=== PATIENT | female | born 1990 | race Caucasian/White ===

== ENCOUNTER 2021-01-26 10:00 | Inpatient (IN) | payer OTHER, SELFPAY ==
[2021-01-26] VITALS (20 sets, daily range): BP systolic 100–129; BP diastolic 43–78; PULSE 61–85; RESP 16–20; TEMP 35.7–36.9; O2SAT 96–100; BMI 31.1
[2021-01-26] MEDS: Lactated Ringers 1,000 ML 999 ML IV (11:00)
--- NOTE | 2021-01-26 11:12 | PCM.HP.OB ---
HPI - General General Date of Admission: 01/26/21 HPI Narrative MIKAYLA CARLISLE, is a 30 F at 40/3 who presents for repeat Maternal Data Information ELIANA Calculator Estimated Delivery Date Method Current WG Current Estimate 01/23/21 Manual 40w 3d PFSH PFSH Home Medications borage (borago officinalis) [Borage Oil] 2,000 mg PO DAILY 01/26/21 [History Last Taken 01/25/21] tatum mutx-dtlavtlk-oyxaemhrh ac [[place] Oil] 1 cap PO TID 01/26/21 [History Last Taken 01/25/21] grijpdlk-cuk-Um-FA [] 1 tab PO DAILY 01/26/21 [History Last Taken 01/25/21] Allergy/AdvReac Type Severity Reaction Status Date / Time No Known Allergies Allergy Unverified 01/26/21 09:04 Surgical History (Updated 01/26/21 @ 09:08 by Elly Kim) H/O section History of wisdom tooth extraction, class IV edentulism Social History (Updated 01/26/21 @ 09:10 by Elly Kim) household members: family housing: house number of children: 2 Smoking Status: Never smoker second hand exposure: No alcohol intake: current alcohol intake frequency: holidays/special occasions only details: not while substance use type: does not use seatbelt use: always do you feel safe at home: Yes additional social history: - [place] History 3 Elective abortions Hx Para 2 Spontaneous abortions Hx # Term Pregnancies Ectopic pregnancies Hx # Pregnancies Multiple births # of living children 2 Past Pregnancies Del. Date Name GA/Weeks Outcome Route Bth Weight Infant Gen Labor Lgth Anesthesia Del Locatn Provider FOB 10/07/18 Mainor 40 live - full term 7lbs 9oz Male couple of hours epidural [facility] Dr. Jax Stevenson 11/06/19 Elly 40 live - full term 7lbs 9oz Female 0 spinal [facility] Graham Delivery Date: 10/07/18 Failure to progress Elly Kim Delivery Date: 11/06/19 scheduled C/S no complications Elly Kim Visit Details Expected Delivery Route/Plan RCD ROS Eyes Eyes: Reports systems reviewed and no addt'l complaints, except as documented ENT HEENT: Reports systems reviewed and no addt'l complaints, except as documented Cardiovascular Cardiovascular: Reports systems reviewed and no addt'l complaints, except as documented Respiratory/Chest Respiratory/Chest: Reports systems reviewed and no addt'l complaints, except as documented Gastrointestinal Gastrointestinal: Reports systems reviewed and no addt'l complaints, except as documented Genitourinary Genitourinary: Reports systems reviewed and no addt'l complaints, except as documented Musculoskeletal Musculoskeletal: Reports systems reviewed and no addt'l complaints, except as documented Integumentary Integumentary: Reports systems reviewed and no addt'l complaints, except as documented Neurologic Neurologic: Reports systems reviewed and no addt'l complaints, except as documented Psychiatric Psychiatric: Reports systems reviewed and no addt'l complaints, except as documented Endocrine Endocrinology: Reports systems reviewed and no addt'l complaints, except as documented Hematologic/Lymphatic Hematologic/Lymphatic: Reports systems reviewed and no addt'l complaints, except as documented Allergic/Immunologic Allergic/Immunologic: Reports systems reviewed and no addt'l complaints, except as documented Vital Signs Vital Signs Vital Signs: Weight Weight: 176 lb Body Mass Index (BMI) 31.1 Physical Exam Const alert, oriented x3, no apparent distress, average body habitus, healthy appearing and well nourished HEENT normocephalic and moist oral mucous membranes Head and Scalp: atraumatic Eyes PERRL and EOMs intact bilaterally Neck full ROM Resp normal respiratory effort, no retractions and no use of accessory muscles Cardio regular rate and regular rhythm GI soft to palpation, non-tender and non-distended Extremity normal to inspection and full ROM Skin no rashes or lesions noted Neuro no focal motor deficits and no sensory deficits noted Psych mental status grossly normal, affect normal, speech normal and activity/motor behavior normal Labs Labs Labs: No Data to Display Assessment & Plan (1) Limited care in third trimester: COMMENT: Received care with mirror fabrication supervisor. NOB labs ordered on admission. (2) H/O section: COMMENT: 2018 and 2019 PLAN: Hx x2 Plan repeat Ancef 2g ordered Plan spinal anesthesia
[2021-01-26] MEDS: Acetaminophen 500 MG Tablet 1000 MG PO ×3 (11:27→23:34)
[2021-01-26] MEDS: Sodium Citrate/Citric Acid 30 ML UDC PO (11:29)
[2021-01-26 11:31] LABS: Absolute Lymphocyte Count 2.05 X10^3/uL (0.83-4.51); Absolute Neutrophil Count 7.6 X10^3/uL (2.0-7.7); Basophil# 0.03 X10^3/uL; Basophil% 0.3 % (0-1); Eosinophil# 0.03 X10^3/uL; Eosinophils% 0.3 % (0-5); Hematocrit 35.4 % (37-47); Hemoglobin 11.2 g/dL (12.0-15.0); Lymphocyte # 2.05 X10^3/ul (0.83-4.51); Lymphocyte % 19.8 % (19-41); Mean Corp Hgb Conc 31.6 g/dL (32-36); Mean Corpuscular Hgb 27.9 pg (27.0-32.0); Mean Corpuscular Volume 88.3 fL (81-99); Mean Platelet Vol. 8.6 fl (6.2-12.0); Monocyte# 0.61 X10^3/uL; Monocyte% 5.9 % (0-10); NRBC Flagged by Analyzer 0 % (0-5); Neutrophil # 7.58 X10^3/uL (2.7-7.7); Neutrophil % 73.2 % (47-70); Platelet Count 382 K/mm3 (150-450); RBC Distribution Width CV 13.7 % (11.6-14.6); RBC Distribution Width SD 44.1 fl (35.1-43.9); Red Blood Count 4.01 M/mm3 (4.2-5.4); White Blood Count 10.4 K/mm3 (4.4-11.0)
[2021-01-26 11:36] LABS: Mucous, Urine 0 SEEN /hpf (<or=2+); Red Blood Cells-Urine 0 SEEN /hpf (0-5); White Blood Cells 0 SEEN /hpf (0-5)
[2021-01-26 11:38] LABS: Color, Urine Yellow (Yellow); Glucose, Dipstick Normal (Normal); Ketone-Dipstick 50 mg/dl (Negative); Leukocyte Esterase-Dipstick Negative /ul (Negative); Nitrite-Dipstick Negative (Negative); Occult Blood-Urine Negative /ul (Negative); Protein-Dipstick Negative (Negative); Urine Bilirubin Dipstick Negative (Negative); Urine Clarity Sl. Cloudy (Clear); Urine Urobilinogen Normal (Normal)
[2021-01-26 11:44] LABS: Bacteria 1+ /hpf (None Seen); Squamous Epithelial Cells - UA 0-5 SEEN /hpf (5-10)
[2021-01-26 12:03] LABS: Amphetamine Urine VISTA NEGATIVE (<1000 ng/mL); Barbiturate Urine VISTA NEGATIVE (< 200 ng/mL); Benzodiazepine Urine VISTA NEGATIVE (< 200 ng/mL); Cocaine Urine VISTA NEGATIVE (< 300 ng/mL); Ecstacy Urine VISTA NEGATIVE (< 500 ng/mL); Methadone Urine VISTA NEGATIVE (< 300 ng/mL); PCP Urine VISTA NEGATIVE (< 25 ng/mL); THC Urine VISTA NEGATIVE (< 50 ng/mL); Vista UDS pH Range 6
[2021-01-26] MEDS: Lactated Ringers 1,000 ML 150 ML IV (12:05)
[2021-01-26] MEDS: Cefazolin 2 GM in 0.9% Normal Saline 100 ML IV (12:05)
[2021-01-26 12:10] LABS: Rubella IgG Reactive (Nonreactive); Syphilis Antibodies Non-reactive
[2021-01-26 12:29] LABS: HIV - WCH Non-Reactive (Nonreactive); Hepatitis B Surface Antigen Non-Reactive (Nonreactive); Hepatitis C Antibody Non-Reactive (Nonreactive)
--- NOTE | 2021-01-26 13:07 | OP.PCM_ITS ---
Assessment & Plan (1) delivery delivered: (2) Limited care in third trimester: COMMENT: Received care with accident report clerk. NOB labs ordered on admission. (3) H/O section: COMMENT: 2018 and 2019 Maternal Data Information ELIANA Calculator Estimated Delivery Date Method Current WG Current Estimate 01/23/21 Manual 40w 3d Details Operative Information Date of Procedure: 01/26/21 Pre-Operative Diagnosis: Term , postdates, history of x2 Post-Operative Diagnosis: Same Indications for : Repeat Elective Indications Narrative: 30-year-old G3, P2 at 40 weeks gestation admitted for repeat . Classification: Scheduled Procedure Type: low transverse premium card cancellation clerk #1: Kimberly Alvares Type of Anesthesia: Spinal Antibiotic Given: Ancef 2 grams IV x1 Drain: Padron to straight drain Estimated Blood Loss: 400 Findings Description of Procedure: The patient is a 30-year-old G3, P2 who presented for repeat . Spinal anesthesia was placed without difficulty. Padron catheter was placed. The patient was placed in the dorsal supine position with leftward tilt. Patient was prepped and draped in the normal sterile fashion. Pfannenstiel skin incision was made with the scalpel and carried through to the underlying layer of fascia with the scalpel. Fascia was nicked in the midline and the incision extended laterally. The rectus bellies were dissected off superiorly and inferiorly with out complication both sharply and bluntly. The peritoneum was entered digitally. The incision was stretched and a low transverse uterine incision was made with the scalpel. The 's head was delivered atraumatically followed by the anterior and posterior shoulders without complication the rest of the delivered. The cord was clamped and cut and the infant was handed off to awaiting nurse. The placenta was delivered spontaneously immediately following and was noted to be intact and have a three- vessel cord. The uterus was exteriorized cleared of all clots and debris, and the incision was closed in a double layer closure using #1 Monocryl. The ovaries and fallopian tubes were noted to be within normal limits. The uterus was returned to the maternal abdomen and gutters were cleared of all clots and debris. The peritoneum was closed with 3-0 Monocryl in a running fashion. Gloves were changed prior to fascial closure. Fascia was closed with 0 PDS in a running fashion. Subcutaneous tissue was copiously irrigated and the skin was closed with 3-0 Monocryl in a subcuticular fashion. Mepilex dressing was applied without complication. Patient was taken to recovery in stable condition. Presentation: Positive for Vertex Amniotic Membrane Rupture Type: Spontaneous Amniotic Fluid Description: Lightly stained meconium Placental Delivery Description: Manual Removal Placenta Disposition: [facility] Cord Vessel Description: 3 Vessels Cord Entanglement: None Delayed Cord Clamping: Yes Complications Risks of Surgery Discussed w/Patient: Bleeding, Anesthesia Risks, Infection, Need for Future C-Sections and Injury to surrounding structure(s) including bowel and bladder Procedures Urinary/Genital [id number]: [id number] Delivery [facility]
[2021-01-26 13:26] LABS: Chlamydia Trachomatis by PCR Negative (Negative); Neisserai gonorrhoeae by PCR Negative (Negative); Probe Check PASS; Sample Adequacy Control PASS; Specimen Processing Control PASS
[2021-01-26] MEDS: Oxytocin 30 units/NS 500 ml 30 UNITS/500 ML IV.SOLN 167 UNITS IV (13:30)
[2021-01-26] MEDS: Ketorolac 30 MG/ML Syringe IV (13:57)
--- NOTE | 2021-01-26 14:03 | DCINST_ITS ---
Discharge Instructions Diet Discharge Diet: No restrictions Activity May resume sexual activity in: 4-6 weeks Lifting Restrictions: 20 lbs Additional Activity Instructions:: Nothing in the vagina for 4-6 weeks. You may return to work/school in 6 weeks. Dressing / Incision Call your doctor if your incision/area has: Continuous Slow Oozing, Sudden Increased Bleeding, Increased Pain/ Swelling, Increased Redness and Foul Smelling Discharge Call your doctor if you observe: Fever of 101 or Higher Suture Line Care: Avoid Pulling/Pushing and Avoid Pinching/Bending Follow Up Care When: Call to make an appointment with your doctor for an incision check in 1-2 weeks. You will also need a 6 week post- follow up appointment. Test Results: Test results from this visit will be discussed in further detail at your follow-up appointment, if applicable. Discharge Plan Admission Admit Date/Time: 01/26/21 10:00 Attending Provider: Yara Cristobal Primary Care Provider: Patricia Physician,No Primary Instructions Patient Instructions: After a Discharge Orders/Prescriptions Prescriptions: New ibuprofen 800 mg tablet 800 mg PO Q8H PRN (Reason: pain) Qty: 30 RF: 1 oxycodone 5 mg capsule 5 mg PO Q6H PRN (Reason: pain) 7 Days Qty: 15 RF: 0 Continued baxpkruq-ugp-Zk-FA 1 mg Tablet 1 tab PO DAILY RF: 0 borage (borago officinalis) 1,000 mg Capsule 2,000 mg PO DAILY RF: 0 [place] Oil 1,000 mg Capsule 1 cap PO TID RF: 0 Referrals / Follow Up: Care Physician,No Primary [Primary Care Provider] -
[2021-01-26] MEDS: Lactated Ringers 1,000 ML 100 ML IV (16:50)
[2021-01-27 03:10] VITALS: BP 114/43; PULSE 80; RESP 16; TEMP 36.6; O2SAT 99
[2021-01-27] MEDS: Acetaminophen 500 MG Tablet 1000 MG PO ×2 (05:44→13:10)
--- NOTE | 2021-01-27 06:16 | PN.OBGYN_ITS ---
Subjective Subjective Patient doing well without complaints. Tolerating PO. Ambulating and voiding without difficulty. Breast feeding well. Denies chest pain, shortness of breath, calf pain/swelling, fevers, chills, lightheadedness. Objective Data Objective Data Vital Signs: Vital Signs Temp Pulse Resp BP Pulse Ox 97.9 F 80 16 114/43 L 99 01/27/21 03:10 01/27/21 03:10 01/27/21 03:10 01/27/21 03:10 01/27/21 03:10 Oxygen Delivery Method Room Air Weight: 176 lb Body Mass Index (BMI) 31.1 Intake & Output: Intake and Output for Last 24 Hours 01/25/21 01/26/21 01/27/21 23:59 23:59 23:59 Intake Total 3680.83 / 3680.83 Output Total 1750 / 1750 550 / 550 Balance 1930.83 / 1930.83 -550 / -550 Lab / Micro Data Result Diagrams: 01/26/21 11:00 Labs: Laboratory Results - last 24 hr 01/26/21 11:00: WBC 10.4, RBC 4.01 L, Hgb 11.2 L, Hct 35.4 L, MCV 88.3, MCH 27.9, MCHC 31.6 L, RDW Std Deviation 44.1 H, RDW Coeff of Angela 13.7, Plt Count 382, MPV 8.6, Immature Gran % (Auto) 0.500, Neut % (Auto) 73.2 H, Lymph % (Auto) 19.8, Pleasants % (Auto) 5.9, Eos % (Auto) 0.3, Baso % (Auto) 0.3, Absolute Neuts (auto) 7.6, Absolute Lymphs (auto) 2.05, Nucleated RBC % 0 01/26/21 11:00: Blood Type O POSITIVE, Antibody Screen NEGATIVE 01/26/21 11:00: Urine Color Yellow, Urine Clarity Sl. Cloudy, Urine pH 7.0, Ur Specific [place] 1.010, Urine Protein Negative, Urine Glucose (UA) Normal, Urine Ketones 50 H, Urine Occult Blood Negative, Urine Nitrite Negative, Urine Mando irubin Negative, Urine Urobilinogen Normal, Ur Leukocyte Esterase Negative, Urine RBC 0 SEEN, Urine WBC 0 SEEN, Ur Squamous Epith Cells 0-5 SEEN, Urine Bacteria 1+, Urine Mucus 0 SEEN 01/26/21 11:00: Syphilis Total Ab Non-reactive, Rubella IgG Antibody Reactive 01/26/21 11:00: Urine Opiates Screen NEGATIVE, Urine Methadone Screen NEGATIVE, Ur Barbiturates Screen NEGATIVE, Ur Phencyclidine Scrn NEGATIVE, Ur Amphetamines Screen NEGATIVE, U Methamphetamin-MDMA NEGATIVE, U Benzodiazepines Scrn NEGATIVE, Urine Cocaine Screen NEGATIVE, U Cannabinoids Screen NEGATIVE, Ur Drug Screen Comment 01/26/21 11:00: Hep Bs Antigen Non-Reactive, Hepatitis C Antibody Non-Reactive, HIV 1&2 Antibody Non-Reactive 01/26/21 11:00: Chlam trachomat DNA PCR Negative, N.gonorrhoeae DNA (PCR) Negative Micro: Microbiology 01/26/21 11:00 Nasal Secretion SARS-CoV-2 Antigen (Rapid) - Final ROS Constitutional Constitutional: Denies fever(s) Cardiovascular Cardiovascular: Denies chest pain, dyspnea or lightheadedness Gastrointestinal Gastrointestinal: Reports abdominal pain; Denies constipation or diarrhea Neurologic Neurologic: Denies dizziness or headache(s) Physical Exam Const alert, oriented x3, no apparent distress, average body habitus, healthy appearing and well nourished HEENT normocephalic Head and Scalp: atraumatic Eyes PERRL and EOMs intact bilaterally Neck full ROM Lymph Lymphatic: no lymphadenopathy noted Resp normal respiratory effort, no retractions and no use of accessory muscles Cardio regular rate GI soft to palpation, non-tender and non-distended Inspection: incision intact and other (dressing in place) Palpation: other Other Details: fundus firm Extremity normal to inspection and no clubbing, cyanosis or edema Skin no rashes or lesions noted Neuro no focal motor deficits and no sensory deficits noted Psych mental status grossly normal, affect normal and speech normal Assessment & Plan (1) delivery delivered: PLAN: s/p LTCS PPD # 1 1. routine post care 2. breast feeding- support given 3. rh positive 4. rubella immune 5. Declines AM CBC
[2021-01-27 08:12] VITALS: BP 115/76; PULSE 64; RESP 16; TEMP 36.4; O2SAT 99
[2021-01-27] MEDS: Ibuprofen 600 MG Tablet PO (09:04)
[2021-01-27 13:14] VITALS: BP 110/68; PULSE 70; RESP 16; TEMP 37.1; O2SAT 99
--- NOTE | 2021-01-27 14:05 | CASEMGMT ---
Social Work Assessment Labor and Delivery Unit Date of Referral: 01/27/21 Time of Referral: 13:50 Referred By: Maryjane Lopez Date of Intervention: 01/27/21 Time of Intervention: 14:05 Reason for Referral: Concerns for MOB?s mental health, limited care History obtained from: Chart review, nursing report, MOB and FOB Household composition: MOB, FOB-Graham Kline, children Mainor (2 years old), Elly (1 year old) and -Justice Patient's parent/guardian status: MOB and FOB are baby adams Rendon is their 3rd child together. Medical History: MOB with 2 previous c-sections. MOB with limited care-3rd trimester. Lead Generator-Bruna Orosco. Financial Status: No concerns Infant Supplies: FOB reports to have all needs met for baby. Childcare/Caregiver(s): MOB and FOB Transportation: No issues Behavioral Health Issues: Mental Health History: MOB reports history of anxiety. FOB reports MOB was not treated with medication. MOB states has completed counseling in the past. Substance Use History: MOB denies any history of substance abuse. Maternal and Drug Screens: Tox screens-negative Family/Social Stressors: Per nurses report, MOB was voicing concerns to Lead GeneratorYonas over the phone with nurse in room. MOB had stated she wanted to be from FOB and then later stated ?I should have followed him out when he left, I know I am right about things and we don?t need to be here.? Support Systems: FOB reports good support from family and friends. Depression and Anxiety/Shaken Baby/Safe Sleeping: Reviewed and resources provided. ASSESSMENT: Nursing reported concerns for MOB?s mental health stating bizarre behaviors and conversations. MOB noted to have headache and ?keeps eyes closed.? Met with MOB and FOB in room. Upon entering room FOB standing at banner swaddling baby Justice lamas. MOB laying flat in bed with eyes closed. Introduced role and reason for referral. FOB reports MOB with headache and was just given Tylenol. MOB opened eyes briefly to make eye contact with this worker. MOB and FOB report to have all needs met for baby. Inquired about mental health history. MOB reports history of anxiety ?on and off.? FOB reports 2 other children in the home. MOB and FOB deny any history of substance abuse. Most questions answered by FOB due to MOB having ?bad headache.? Discussed signs/symptoms of post- depression and provided information. Updated nursing on this worker?s limited assessment due to MOB not cooperating due to headache. This worker to remain available for needs. Anticipate discharge today. FOB appropriate with care of baby. PLAN: Home with resources provided. Will follow up with [facility] on Friday due to concerns for MOB?s mental health. No other services requested or indicated. Jacky Mcdaniels, DEVULCANIZER OPERATOR, RAILROAD REPAIRER
--- NOTE | 2021-01-27 15:42 | NURSING ---
This RN arrived to room to do assessment and vitals, pt was acting very bizarre and having scattered thoughts. Pt stated that she needed to get on the same page as him with feeding. She would start a sentence and not finish. Later on this RN entered room and FOB was out of room and MOB had counter help on speaker phone and MOB was stating how she didn't want to return to the home and felt she needed to be seperated from FOB, stated that they have been disagreeing on a lot of things. MOB then immediately said i should've followed him out when he left, i know i am right about things and we don't need to be here. The counter help asked the patient if she felt like she needed to stay in the hospital longer. Pt started crying and then stated its just making me think of my past and bringing back thoughts. 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 i have three kids to take care of. This RN at bedside stayed until returned and then updated chrage RN that pt not making any sense and this RN concerned. SSC placed.
--- NOTE | 2021-01-29 12:05 | CASEMGMT ---
SOCIAL WORK Call to [facility] ([phone]) report made to Sultana regarding concerns reported by nursing due to MOB's mental health and bizarre behavior. This worker discussed brief assessment completed with MOB and FOB. Informed limited information from MOB due to headache and would not open eyes. Sultana to review with fishing tool supervisor. This worker's contact information provided for any additional questions. Jacky Mcdaniels, OUTBOARD MOTORBOAT OPERATOR, INGREDIENT SCALER
== END 2021-01-27 15:00 | disposition home or self-care (01) | DRG 788 ==
PROVIDERS: Admitting Provider Obstetrics & Gynecology; Referring Provider Obstetrics & Gynecology; Visit Provider Obstetrics & Gynecology
PROC: 10D00Z1 Extraction of Products of Conception, Low, Open Approach (ICD-10-PCS; CPT 59514; principal; 2021-01-26 11:45)
DX: O34.211 Maternal care for low transverse scar from previous cesarean delivery (principal); O48.0 Post-term pregnancy; Z37.0 Single live birth; Z3A.40 40 weeks gestation of pregnancy; O77.0 Labor and delivery complicated by meconium in amniotic fluid
CPT/HCPCS: 59025; 80307; 81001; 85025; 86703; 86762; 86780; 86803; 86850; 86900; 86901; 87340; 87426; 87491; 87591; 99218; J7120; G0378; J2405